=== PATIENT | female | born 1985 | race Caucasian/White ===

== ENCOUNTER 2016-10-18 17:17 | Emergency (ER) | payer SELFPAY ==
[2016-10-18 17:49] VITALS: BP 141/94
--- NOTE | 2016-10-18 18:22 | UC ---
UC General HPI - HPI Summary HPI Summary: Ariadna has been seeing a therapist for anxiety thinks that she needs a prescription of xanax to help her at work- Harshil Lagunas not having anxiety at this time has a history of cutting denies depression and anxiety denies suicidal /homicidal ideation not taking any medications at this time. - History of Current Complaint Chief Complaint: UC Stated Complaint: ANXIETY Time Seen by Provider: 10/18/16 18:13 Hx Obtained From: Patient - Allergy/Home Medications Allergies/Adverse Reactions: Allergies Allergy/AdvReac Type Severity Reaction Status Date / Time ENVIRONMENTAL Allergy Intermediate Congestion Uncoded 10/18/16 17:51 PMH/Surg Hx/FS Hx/Imm Hx Previously Healthy: Yes Endocrine History Of: Denies: Diabetes, Thyroid Disease Cardiovascular History Of: Denies: Cardiac Disorders, Hypertension, Congestive Heart Failure Respiratory History Of: Denies: COPD, Asthma GI/ History Of: Denies: Ulcer, Renal Disease Psychological History Of: Reports: Anxiety, Depression - Surgical History Surgical History: None - Family History Known Family History: Negative: Cardiac Disease, Hypertension, Diabetes - Social History Occupation: Employed Full-time Lives: With Family Alcohol Use: None Substance Use Type: None, Marijuana, Other Substance Use Comment - Amount & Last Used: [employer] Smoking Status (MU): Never Smoked Tobacco Review of Systems Constitutional: Negative Skin: Negative Eyes: Negative ENT: Negative Respiratory: Negative Cardiovascular: Negative Gastrointestinal: Negative Genitourinary: Negative Motor: Negative Neurovascular: Negative Musculoskeletal: Negative Neurological: Negative Psychological: Anxious, Depressed All Other Systems Reviewed And Are Negative: Yes Physical Exam Triage Information Reviewed: Yes Appearance: No Pain Distress, Well-Nourished, Obese Vital Signs: Initial Vital Signs Temp 99.7 F 10/18/16 17:44 Pulse 88 10/18/16 17:44 Resp 18 10/18/16 17:44 BP 141/94 10/18/16 17:44 Pulse Ox 100 10/18/16 17:44 Vital Signs Reviewed: Yes Eyes: Positive: Conjunctiva Clear ENT: Positive: Pharynx normal Neck: Positive: No Lymphadenopathy Respiratory: Positive: Lungs clear, Normal breath sounds, No respiratory distress Cardiovascular: Positive: RRR, No Murmur, Pulses Normal Abdomen Description: Positive: Nontender, Soft Bowel Sounds: Positive: Present Musculoskeletal: Positive: No Edema Neurological: Positive: Alert Psychological Exam: Normal Psychological: Positive: Other: - good eye contact, normal rate of speech, well groomed Skin Exam: Normal Course/Dx - Differential Dx - Multi-Symptom Provider Diagnoses: anxiety Discharge - Discharge Plan Condition: Stable Disposition: HOME Prescriptions: hydrOXYzine PAMOATE CAP* [Vistaril CAP*] 25 mg PO TID PRN #30 cap PRN Reason: Anxiety Patient Education Materials: Anxiety (ED) Referrals: No Primary Care Phys,NOPCP [Primary Care Provider] - [facility] [place] [facility] [Outside] Additional Instructions: Your blood pressure is elevated. Please contact your primary care provider within 1 day -4 weeks for further evaluation. Please take vistiril as directed Increase fluids and rest please call the physician referral line to establish a primary care provider Please review your discharge instructions. If your symptoms do not improve please call your primary care provider or return to urgent care.
== END 2016-10-18 18:40 | disposition home or self-care (01) ==
LOC: UCEAST 17:17
DX: F41.9 Anxiety disorder, unspecified (principal); E66.9 Obesity, unspecified
CPT/HCPCS: 99212; G0463

== ENCOUNTER 2017-02-10 16:12 | Emergency (ER) | payer BC ==
[2017-02-10 16:20] VITALS: BP 122/63
--- NOTE | 2017-02-10 17:19 | UC ---
Skin Complaint HPI - HPI Summary HPI Summary: Itchy rash developed on bilat feet, ankles, and shins about 10 days ago (over the course of a few days) after walking through thick plants in sandals. Has been scratching her skin raw, itching is still unbearable. - History of Current Complaint Chief Complaint: UCSkin Time Seen by Provider: 02/10/17 16:53 Stated Complaint: RASHES ON ANKLES Hx Obtained From: Patient Hx Last Menstrual Period: 01/31/17 ?: No Onset/Duration: Gradual Onset, Lasting Days Skin Exposure Onset/Duration: Days Ago Timing: Constant Onset Severity: Mild Current Severity: Mild Location: Discrete Character: Pruritus, Redness, Raised Aggravating: Nothing Alleviating: Nothing Associated Signs & Symptoms: Positive: Rash - Allergy/Home Medications Allergies/Adverse Reactions: Allergies Allergy/AdvReac Type Severity Reaction Status Date / Time ENVIRONMENTAL Allergy Intermediate Congestion Uncoded 02/10/17 16:20 Home Medications: Home Medications Escitalopram Oxalate [Lexapro 20 mg] 20 mg PO DAILY 02/10/17 [History Confirmed 02/10/17] Rx Allergy Med* 02/10/17 [History] Review of Systems Constitutional: Negative Skin: Rash Eyes: Negative ENT: Negative Respiratory: Negative Cardiovascular: Negative Gastrointestinal: Negative Genitourinary: Negative Motor: Negative Neurovascular: Negative Musculoskeletal: Negative Neurological: Negative Psychological: Negative All Other Systems Reviewed And Are Negative: Yes PMH/Surg Hx/FS Hx/Imm Hx Previously Healthy: Yes - Surgical History Surgical History: None - Family History Known Family History: Negative: Cardiac Disease, Hypertension, Diabetes - Social History Lives: With Family Alcohol Use: None Substance Use Type: None Substance Use Comment - Amount & Last Used: [facility] Smoking Status (MU): Never Smoked Tobacco Physical Exam Triage Information Reviewed: Yes Appearance: Well-Appearing, Obese Vital Signs: Initial Vital Signs Temp 100.4 F 02/10/17 16:17 Pulse 86 02/10/17 16:17 Resp 16 02/10/17 16:17 BP 122/63 02/10/17 16:17 Pulse Ox 95 02/10/17 16:17 Vital Signs Reviewed: Yes Eye Exam: Normal, Other - PERRL Eyes: Positive: Conjunctiva Clear ENT Exam: Normal ENT: Positive: Normal ENT inspection, Hearing grossly normal, Pharynx normal, TMs normal Dental Exam: Normal Neck exam: Normal Neck: Positive: Supple, Nontender, No Lymphadenopathy Respiratory Exam: Normal Respiratory: Positive: Chest non-tender, Lungs clear, Normal breath sounds, No respiratory distress, No accessory muscle use Cardiovascular Exam: Normal Cardiovascular: Positive: RRR, No Murmur Musculoskeletal Exam: Normal Neurological Exam: Normal Neurological: Positive: Alert Psychological Exam: Normal Skin Exam: Other - many excoriations on anterior ankles, bilat dorsal feet, and up on shins. No primary lesions. Course/Dx - Differential Diagnoses - Skin Complaint Differential Diagnoses: Contact Dermatitis, Local Allergic Reaction, Poison Jazmin , Poison [place], Scabies, Tinea, Urticaria - Diagnoses Provider Diagnoses: contact dermatitis bilat Discharge - Discharge Plan Condition: Stable Disposition: HOME Prescriptions: predniSONE TAB* [Deltasone TAB*] 40 mg PO DAILY #8 tab Patient Education Materials: Contact Dermatitis (ED) Referrals: Fabián Cornejo MD [Primary Care Provider] - Additional Instructions: If you do not see clear improvement by the time your prednisone is done, please see your primary care provider for follow-up.
== END 2017-02-10 17:20 | disposition home or self-care (01) ==
LOC: UCEAST 16:12
DX: L25.9 Unspecified contact dermatitis, unspecified cause (principal)
CPT/HCPCS: 99212; G0463

== ENCOUNTER 2017-05-30 13:03 | Emergency (ER) | payer BC ==
[2017-05-30 13:17] VITALS: BP 139/56
--- NOTE | 2017-05-30 14:10 | UC ---
Respiratory Complaint HPI - HPI Summary HPI Summary: Pt presents with sinus pain/pressure/congestion for 1.5weeks. Has tried OTC dayquill and nyquill with minimal relief. Throat feels dry this morning and has felt warm at times. Denies SOB, cough, N/V/D/C. - History of Current Complaint Hx Obtained From: Patient Hx Last Menstrual Period: 1.5 weeks ago ?: No Onset/Duration: Gradual Onset Severity Initially: Moderate Severity Currently: Moderate Pain Intensity: 8 Pain Scale Used: 0-10 Numeric <Valentin Celeste - Last Filed: 05/30/17 21:41> <Raine Hooker - Last Filed: 05/31/17 14:38> - History of Current Complaint Chief Complaint: UCGeneralIllness Stated Complaint: SINUS CONGESTION Time Seen by Provider: 05/30/17 14:06 - Allergies/Home Medications Allergies/Adverse Reactions: Allergies Allergy/AdvReac Type Severity Reaction Status Date / Time ENVIRONMENTAL Allergy Intermediate Congestion Uncoded 05/30/17 13:11 Home Medications: Home Medications Dayquil 1 tab PO DAILY PRN 05/30/17 [History Confirmed 05/30/17] PMH/Surg Hx/FS Hx/Imm Hx Previously Healthy: Yes - Surgical History Surgical History: None - Family History Known Family History: Negative: Cardiac Disease, Hypertension, Diabetes - Social History Alcohol Use: None Substance Use Type: None Substance Use Comment - Amount & Last Used: SUAD Smoking Status (MU): Never Smoked Tobacco <Valentin Celeste - Last Filed: 05/30/17 21:41> Review of Systems Constitutional: Fever Skin: Negative Eyes: Negative ENT: Nasal Discharge, Sinus Congestion, Sinus Pain/Tenderness Respiratory: Negative Cardiovascular: Negative Gastrointestinal: Negative Psychological: Negative All Other Systems Reviewed And Are Negative: Yes <Valentin Celeste - Last Filed: 05/30/17 21:41> Physical Exam Triage Information Reviewed: Yes Appearance: Well-Appearing, Well-Nourished Vital Signs: Initial Vital Signs Temp 99.9 F 05/30/17 13:08 Pulse 96 05/30/17 13:08 Resp 18 05/30/17 13:08 BP 139/56 05/30/17 13:08 Pulse Ox 100 05/30/17 13:08 Vital Signs Reviewed: Yes Eyes: Positive: Conjunctiva Clear ENT: Positive: Hearing grossly normal, Pharynx normal, Nasal congestion, Nasal drainage, TMs normal, Sinus tenderness. Negative: Pharyngeal erythema, TM bulging, TM dull, TM red, Tonsillar swelling, Tonsillar exudate Neck: Positive: Supple, Nontender, No Lymphadenopathy Respiratory: Positive: Chest non-tender, Lungs clear, Normal breath sounds, No respiratory distress, No accessory muscle use Cardiovascular: Positive: RRR, No Murmur, Pulses Normal <Valentin Celeste - Last Filed: 05/30/17 21:41> Vital Signs: Initial Vital Signs Temp 99.9 F 05/30/17 13:08 Pulse 96 05/30/17 13:08 Resp 18 05/30/17 13:08 BP 139/56 05/30/17 13:08 Pulse Ox 100 05/30/17 13:08 <Raine Hooker - Last Filed: 05/31/17 14:38> UC Diagnostic Evaluation - Laboratory O2 Sat by Pulse Oximetry: 100 <Valentin Celeste - Last Filed: 05/30/17 21:41> Respiratory Course/Dx - Course Course Of Treatment: Sinusitis - Amoxicillin for 10 days - Differential Dx/Diagnosis Differential Diagnosis/HQI/PQRI: Asthma, Bronchitis, Influenza, Sinusitis Provider Diagnoses: Sinusitis <Valentin Celeste - Last Filed: 05/30/17 21:41> Discharge <Valentin Celeste - Last Filed: 05/30/17 21:41> <Raine Hooker - Last Filed: 05/31/17 14:38> - Discharge Plan Condition: Stable Disposition: HOME Prescriptions: Amoxicillin PO (*) [Amoxicillin 500 MG CAP*] 500 mg PO Q12H #20 cap Forms: *Work Release Referrals: Fabián Cornejo MD [Primary Care Provider] - Additional Instructions: 1) Amoxicillin 500mg twice a day for 10 days. 2) Drink plenty of fluids and may take plain mucinex over the counter as directed. If you develop fever, SOB, chest pain, new or worsening symptoms - please call our office or go to ED. Your blood pressure was high at today's visit - please see your PCP within 4 weeks for recheck and re-evaluation. Attestation Statement User Type: Provider - I was available for consult. This patient was seen by the MELIA. The patient was not presented to, seen by, or examined by me. -Muriel <Raine Hooker - Last Filed: 05/31/17 14:38>
== END 2017-05-30 14:24 | disposition home or self-care (01) ==
LOC: UCEAST 13:03
DX: J32.9 Chronic sinusitis, unspecified (principal)
CPT/HCPCS: 99212; G0463

== ENCOUNTER 2017-08-11 09:31 | Emergency (ER) | payer SELFPAY ==
[2017-08-11 09:54] VITALS: BP 143/86
--- NOTE | 2017-08-11 10:23 | UC ---
Throat Pain/Nasal Luigi HPI - HPI Summary HPI Summary: Pt presents with sinus pain/pressure/congestion, sore throat, fever, and body aches for the last 2 days. She did not get a flu shot this year. 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 She has been taking tylenol for her fever and mucinex, which do help. Denies cough, SOB, chest pain, abdominal pain, n/v/d/c. - History of Current Complaint Chief Complaint: UCGeneralIllness Stated Complaint: SORE THROAT FLU SYMPTOMS Time Seen by Provider: 08/11/17 10:05 Hx Obtained From: Patient Hx Last Menstrual Period: 07/26/17 Onset/Duration: Gradual Onset Severity: Severe Pain Intensity: 7 Pain Scale Used: 0-10 Numeric - Allergies/Home Medications Allergies/Adverse Reactions: Allergies Allergy/AdvReac Type Severity Reaction Status Date / Time ENVIRONMENTAL Allergy Intermediate Congestion Uncoded 08/11/17 09:44 Home Medications: Home Medications Dextromethorphan-Phenylephrine [Vicks Dayquil Cold & Flu 10-5-325 mg] 2 tab PO Q4HR PRN 08/11/17 [History Confirmed 08/11/17] Ibuprofen [Advil] 400 mg PO Q6HR PRN 08/11/17 [History Confirmed 08/11/17] Phenylephrine W/ Dm-GG [Mucinex Congestion & Coug 2.5-5-100 mg/5Ml] 2 tab PO Q6HR PRN 08/11/17 [History Confirmed 08/11/17] PMH/Surg Hx/FS Hx/Imm Hx Psychological History: Anxiety, Depression - Surgical History Surgical History: None - Family History Known Family History: Negative: Cardiac Disease, Hypertension, Diabetes - Social History Occupation: Employed Full-time Lives: Alone Alcohol Use: None Substance Use Type: None Smoking Status (MU): Never Smoked Tobacco Review of Systems Constitutional: Fever, Other - Body aches Skin: Negative Eyes: Negative ENT: Sore Throat, Nasal Discharge, Sinus Congestion, Sinus Pain/Tenderness Respiratory: Negative Cardiovascular: Negative Gastrointestinal: Negative Neurovascular: Negative Musculoskeletal: Negative Neurological: Negative Psychological: Negative All Other Systems Reviewed And Are Negative: Yes Physical Exam Triage Information Reviewed: Yes Appearance: Ill-Appearing, Obese Vital Signs: Initial Vital Signs Temp 100.8 F 08/11/17 09:48 Pulse 96 08/11/17 09:48 Resp 20 08/11/17 09:48 BP 143/86 08/11/17 09:48 Pulse Ox 97 08/11/17 09:48 Vital Signs Reviewed: Yes Eyes: Positive: Conjunctiva Clear. Negative: Conjunctiva Inflamed, Discharge ENT: Positive: Hearing grossly normal, Pharynx normal, Nasal congestion, Nasal drainage, TMs normal, Sinus tenderness, Uvula midline. Negative: Pharyngeal erythema, TM bulging, TM dull, TM red, Tonsillar swelling, Tonsillar exudate, Hoarse voice Neck: Positive: Supple, Nontender, Other: - Anterior lymphadenopathy Respiratory: Positive: Chest non-tender, Lungs clear, Normal breath sounds, No respiratory distress, No accessory muscle use Cardiovascular: Positive: RRR, No Murmur, Pulses Normal Neurological: Positive: Alert Psychological: Positive: Age Appropriate Behavior Skin: Negative: rashes Throat Pain/Nasal Course/Dx - Course Course Of Treatment: POC strep negative. Positive for influenza B. Treat with tamiflu and keep taking tylenol and mucinex. - Differential Dx/Diagnosis Provider Diagnoses: Influenza B Discharge - Discharge Plan Condition: Stable Disposition: HOME Prescriptions: Oseltamivir CAP* [Tamiflu CAP*] 75 mg PO BID #10 cap Patient Education Materials: Influenza (DC) Forms: *Work Release Referrals: Fabián Cornejo MD [Primary Care Provider] - Additional Instructions: If you develop a fever, shortness of breath, chest pain, new or worsening symptoms - please call your PCP or go to the ED. Your blood pressure was high at todays visit. Please see your primary provider within 4 weeks for recheck and re-evaluation. 1) Continue to take tylenol alternating with ibuprofen as needed for discomfort and fever.
== END 2017-08-11 11:24 | disposition home or self-care (01) ==
LOC: UCEAST 09:31
DX: J11.1 Influenza due to unidentified influenza virus with other respiratory manifestations (principal)
CPT/HCPCS: 87502; 87651; 99212; G0463